=== PATIENT | male | born 1955 | race Caucasian/White ===

== ENCOUNTER 2023-08-02 22:51 | Emergency (ER) | payer MEDICARE, OTHER, SELFPAY ==
[2023-08-02] VITALS (8 sets, daily range): BP systolic 44–128; BP diastolic 23–94; PULSE 58–122; RESP 16–25; TEMP 36.7–37.1; O2SAT 89–96
--- NOTE | ~2023-08-02 | CT_ITS ---
EXAMINATION: CT CHEST WITHOUT CONTRAST CT ABDOMEN AND PELVIS WITHOUT CONTRAST CLINICAL INFORMATION: unresponsive, cardiac arrest. COMPARISON: No pertinent prior studies are available for comparison. TECHNIQUE: Multidetector volumetric imaging was performed from the thoracic inlet through the pubic symphysis without intravenous contrast material. Multiplanar reformatted images in coronal and sagittal orientations were submitted.. This CT examination was performed using dose optimization techniques as appropriate, variously including the following: *Automated exposure control *Adjustment of mA and/or kV according to patient size (this includes techniques or standardized protocols for targeted exams where dose is matched to indication/reason for exam; i.e. extremities or head) *Use of iterative reconstruction technique DOSE: 1809 mGy-cm FINDINGS: -CHEST- LUNG: Diffuse groundglass and consolidative airspace opacities are present throughout both lungs with areas of sparing more anteriorly, consistent with diffuse pulmonary edema. Interlobular septal thickening is noted in multiple locations, consistent with interstitial edema. There are small moderate-sized bilateral dependent pleural effusions. Central airways are clear. MEDIASTINUM: Calcific atherosclerosis is present in the coronary arteries. Calcification is present at the aortic valve and mitral annulus. Heart is normal in size. Moderate-sized pericardial effusion. ET tube terminates 2.5 cm from the rolando. CHEST WALL/AXILLA: No axillary adenopathy. There are fractures of the right second, third, fourth, fifth, sixth, seventh, and eighth ribs anteriorly and the left second through sixth ribs anteriorly. -ABDOMEN/PELVIS- LIVER, GALLBLADDER, BILIARY TREE: The liver is normal in size, shape, and attenuation. No focal hepatic lesion or biliary ductal dilatation is present. Cholelithiasis. No evidence of acute cholecystitis. PANCREAS: Atrophic. No ductal dilatation. SPLEEN: Normal size. No focal lesion. ADRENAL GLANDS: Normal; no mass. KIDNEYS AND URETERS: The kidneys are normal in size, shape, and attenuation. No hydronephrosis, hydroureter, or calculi seen. Mild bilateral perinephric stranding. BLADDER: Escoto catheter terminates in the bladder. There is bladder wall thickening which may be due to cystitis or reactive to the presence of a Escoto catheter. A small amount of gas is present within the bladder. GASTROINTESTINAL TRACT: NG tube terminates in the body of the stomach. Stomach, small bowel, and colon are normal in caliber. There is a moderate amount of stool throughout the colon. The colon is mild wall thickening with lack of administration. Appendix appears normal. Small bowel is unremarkable. ABDOMINAL WALL: No significant hernia is appreciated. VASCULATURE: Calcific atherosclerosis is present in the abdominal aorta and visceral arteries as well as the iliac and femoral arteries. LYMPH NODES: No lymphadenopathy. . PELVIC VISCERA: Mild prostatomegaly. OSSEUS STRUCTURES: There are above, there are multiple rib fractures. There is a transverse nondisplaced fracture through the sternum between the attachments of the second and third ribs. 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 More mild osteoarthritis in the hips and SI joints. CT/CT abdomen pelvis wo IV con IMPRESSION: 1. Diffuse pulmonary edema with small to moderate-sized bilateral pleural effusions. 2. Moderate-sized pericardial effusion. 3. Multiple bilateral anterior rib fractures as well as a nondisplaced fracture of the sternum. 4. Moderate volume of stool throughout the colon. Mild generalized colonic wall thickening may be related to the stool, though the lack of administration raise the possibility of chronic inflammation/pulmonary disease. No significant focal abnormalities to indicate a site of acute inflammation. 5. Cholelithiasis without evidence of acute cholecystitis. 6. Mild prostatomegaly. 7. Escoto catheter terminates in the bladder. Bladder wall thickening may be due to cystitis or reactive to the presence of a Escoto catheter.
--- NOTE | ~2023-08-02 | XR_ITS ---
EXAMINATION: XR CHEST CLINICAL INFORMATION: Cardiac code COMPARISON: None available. TECHNIQUE: Frontal view of the chest was obtained. FINDINGS: Endotracheal tube approximately 1.4 cm above the rolando. Right chest wall pacer pad. Enteric tube courses below left hemidiaphragm into the stomach. Diffuse patchy radiopacities throughout the bilateral lung rios may reflect infectious/inflammatory etiology, pulmonary edema, or sequela of ARDS. Bilateral low lung volumes. No pneumothorax. Trachea is midline. Cardiac mediastinal silhouette is borderline enlarged. No large pleural effusion. Osseous structures are intact. Soft tissues are unremarkable. XR/XR chest 1V IMPRESSION: 1. Endotracheal tube approximately 1.4 cm above the rolando. 2. Right chest wall pacer pad. 3. Enteric tube courses below left hemidiaphragm into the stomach. 4. Diffuse patchy radiopacities throughout the bilateral lung riso may reflect infectious/inflammatory etiology, pulmonary edema, or sequela of ARDS. 5. Bilateral low lung volumes.
--- NOTE | ~2023-08-02 | CT_ITS ---
EXAMINATION: HEAD CT WITHOUT CONTRAST CERVICAL SPINE CT WITHOUT CONTRAST CLINICAL INFORMATION: Unresponsive. COMPARISON: None. TECHNIQUE: Contiguous axial imaging of the head was performed without the administration of IV contrast. Axial multidetector volumetric images were also performed through the cervical spine without intravenous contrast. Multiplanar reconstructed images in coronal and sagittal orientations were submitted. This CT examination was performed using dose optimization techniques as appropriate, variously including the following: *Automated exposure control *Adjustment of mA and/or kV according to patient size (this includes techniques or standardized protocols for targeted exams where dose is matched to indication/reason for exam; i.e. extremities or head) *Use of iterative reconstruction technique DOSE: 1182 mGy-cm FINDINGS: HEAD: The parenchyma appears diffusely featureless with loss of moeller-white differentiation throughout the cerebrum and cerebellum. A few foci of hypoattenuation in the subcortical and periventricular white matter are most consistent with chronic microangiopathic changes. No focal parenchymal abnormalities are identified. There is no evidence of acute intracranial hemorrhage. No abnormal mass-effect or midline shift. No extra-axial fluid collections. The ventricles are normal in size and configuration. The soft tissues and osseous structures are normal. The sinuses and mastoid air cells are clear. 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 Vertebral body heights are normal. No fractures of the vertebral bodies or posterior elements. Vertebral alignment is normal. No subluxation. Degenerative osteophytes and sclerosis are present at the atlantodental articulation, though normal alignment is maintained. There is mild to moderate multilevel degenerative disc disease in the cervical spine characterized by endplate osteophytes and loss of vertebral disc height. [id number] multilevel facet arthropathy. Vertebral osteophytes produce neural foraminal encroachment at multiple levels. Posterior disc osteophyte complexes also contribute to at least mild central canal narrowing at multiple levels. No epidural hematoma identified. Interstitial edema is suspected at the lung apices. CT/CT cervical spine wo IV con IMPRESSION: 1. Diffuse loss of moeller-white differentiation in the cerebrum and cerebellum with loss of moeller-white differentiation. Findings are most concerning for diffuse anoxic brain injury. Consider confirmation with MRI if clinically warranted. No acute intracranial hemorrhage. 2. No acute fracture or malalignment in the cervical spine. 3. 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 4. Probable interstitial pulmonary edema at the lung apices.
[2023-08-02 22:59] LABS: Glucose, Whole Blood 256 mg/dL (60-115)
--- NOTE | 2023-08-02 23:16 | ECG_ITS ---
Test Reason : CARDIAC ARREST Blood Pressure : / mmHG Vent. Rate : 083 BPM Atrial Rate : 083 BPM P-R Int : 234 ms QRS Dur : 122 ms QT Int : 398 ms P-R-T Axes : 061 151 241 degrees QTc Int : 467 ms Sinus rhythm with 1st degree A-V block Right bundle branch block Left posterior fascicular block Bifascicular block Possible Inferior infarct , age undetermined Anterior infarct , age undetermined T wave abnormality, consider lateral ischemia Abnormal ECG No previous ECGs available Referred By: Elisa Hadley Electronically Signed By:FARHAT DE LA CRUZ MD
[2023-08-02] MEDS: Digoxin 0.5 MG/2 ML AMPUL 0.125 MG IVPUSH (23:32)
[2023-08-02] MEDS: DOBUTamine HCL/D5W 500 MG/250 ML IV.SOLN 16.35 MG IVCONT (23:52)
[2023-08-03] VITALS (17 sets, daily range): BP systolic 75–122; BP diastolic 42–65; PULSE 56–126; RESP 13–14; TEMP 34.4–36.7; O2SAT 63–100; BMI 34.5
[2023-08-03 00:05] LABS: Basophils Percent Auto 0.1 % (0-2); Eosinophils Absolute Auto 0.1 X10*3/uL (0.0-0.4); Eosinophils Percent Auto 1.2 % (0-4); Hematocrit 25.7 % (42.0-52.0); Hemoglobin 7.9 g/dl (14.0-18.0); Imm Gran Abs Auto 0.15 X10*3/uL (0.00-0.03); Lymphocytes Absolute Auto 0.9 X10*3/uL (1.2-4.9); Lymphocytes Percent Auto 11.8 % (20-40); MANUAL DIFF FLAG NO; Mean Corpuscular HGB Conc 30.7 g/dl (31.0-36.0); Mean Corpuscular Hemoglobin 25.6 pg (27.0-33.0); Mean Corpuscular Volume 83.2 fL (80.0-98.0); Mean Platelet Volume 10.5 fL (9.4-12.4); Monocytes Absolute Auto 0.2 X10*3/uL (0.1-1.2); Monocytes Percent Auto 2.9 % (2-11); Neutrophils Absolute Auto 6.2 x10*3/uL (2.0-8.3); Platelet Count 247 X10*3/uL (160-400); Red Blood Count 3.09 X10*6/uL (4.60-5.80); Red Cell Distribution Width 15.9 % (11.0-16.0); White Blood Count 7.6 X10*3/uL (4.8-10.8)
[2023-08-03 00:10] LABS: Venous Blood Gas Refer to POC result
[2023-08-03 00:11] LABS: VBG Base Excess -4.9 mmol/L; VBG HCO3 21 mmol/L (22-26); VBG pCO2 45 mmHg; VBG pH 7.27 (7.32-7.43); VBG pO2 72 mmHg
[2023-08-03 00:20] LABS: Appearance Urine Clear; Color Urine Yellow; Glucose Urine UA 500 mg/dL (Negative); Leukocyte Esterase Urine Negative (Negative); Nitrite Urine Negative (Negative); Specific Gravity - Urine 1.015 (1.005-1.025); UMIC TRIGGER UACC YES; Urine Blood Small (1+) (Negative); Urine Ketones Negative (Negative); Urine Protein 100 (2+) mg/dL (Neg-Trace)
--- NOTE | 2023-08-03 00:20 | PC.NURSE ---
Assumed care for pt. Pt unresponsive, on the ventilator, intubated 7.5 ET 23 @ lip 160G, respiratory at bedside bagging pt. NGT in place, scant brown substance in collection bag. Dobutamine running at 20 mcg. Verbal order received from Dr. Crum to increase it to 30mcg as BP continues to decrease. @ 0037 Dobutamine increased to 35mcg per Dr. Crum who is at bedside. @ 0043 Doutamine increased to 40mcg per Dr. Crum, BP 84/45 @ 0048 BP continues to be low. Dopamine started at 5mcg per Dr Crum. BP 86/45 MAP 56 @ 0053 Dopamine increased to 10mcg. BP 83/45 MAP 56 HR 126
[2023-08-03 00:21] LABS: INTERNATIONAL NORM RATIO 1.5 (0.9-1.1); Prothrombin Time 17.8 SEC (11.1-13.3)
[2023-08-03 00:23] LABS: Bacteria Urine None Seen (None Seen); Hyaline Casts Urine 0-2 /LPF (0-2); Squamous Epithelial Cell Urine 0-2 /HPF (0-2); WBC Urine 0-5 /HPF (0-5)
[2023-08-03 00:24] LABS: Alanine Aminotransferase 65 U/L (0-40); Albumin Level 2.1 g/dL (3.5-5.0); Alkaline Phosphatase 62 U/L (39-117); Anion Gap 19 (12-20); Aspartate Amino Transferase 63 U/L (5-37); Bilirubin Direct 0.3 mg/dL (0.0-0.5); Bilirubin Total 0.5 mg/dL (0.0-1.0); Blood Urea Nitrogen 33 mg/dL (9-16); Calcium 7.2 mg/dL (8.4-10.2); Carbon Dioxide 19 mmol/L (22-29); Chloride 108 mmol/L (96-108); Creatinine Clr Calc Pharmacy 45.6; Estimated Glomerular Filt Rate 36; Ethanol < 10 mg/dL; Glucose Random 313 mg/dL (60-115); Lipase 18 U/L (8-78); Magnesium 1.5 mg/dL (1.6-2.6); Partial Thromboplastin Time 33.8 SEC (26.0-36.4); Potassium 5.3 mmol/L (3.3-5.1); Sodium 141 mmol/L (135-145); Total Protein 5.5 g/dL (6.5-8.0)
[2023-08-03 00:25] LABS: Troponin-I High Sensitivity 23.8 ng/L (<3.5-35.0)
[2023-08-03] MEDS: DOPamine HCL/D5W 400 MG/250 ML PLAST..BAG 20.44 MG IVCONT (00:50)
--- NOTE | 2023-08-03 00:51 | ED.CPR ---
HPI - CPR General Chief Complaint: Cardiac Arrest/CPR Stated Complaint: cardiac arrest Time Seen by Provider: 08/03/23 00:11 Source: EMS Mode of arrival: EMS Limitations: other History of Present Illness HPI narrative: Patient comes to the emergency room via ambulance in cardiac arrest and CPR in progress. According to EMS, a bystander found the patient unresponsive outside of his car. Unknown down time. According to bystanders, the patient was seen with a prostitute in his car, patient exited his car and collapsed. PD arrived at the scene and CPR was started, then EMS arrived, an I- gel was inserted for ventilation, SHIRA was applied to the chest for continues compressions, patient was given 5 epinephrine. Prior to arrival and 1 dose of intranasal Narcan. When patient arrived to the emergency room, patient was still in asystole, patient was intubated immediately Related Data Allergies Allergy/AdvReac Type Severity Reaction Status Date / Time Unable to Assess Allergy Unverified 08/02/23 23:16 Review of Systems Review of Systems: Yes Unobtainable due to mental condition PMFSH Past Medical History Onset Date is defined in the Problem List Problems that require an onset date and time if occurred within 24 hrs of arrival to the ED Aortic Dissection and Rupture; Neurologic impairment; Cardiopulmonary Arrest; Endotracheal Intubation; Insertion or Replacement of Mechanical Circulatory Assist Device Medical History (Updated 08/03/23 @ 03:03 by Yumiko Crum MD) Atrial fibrillation with RVR CHF (congestive heart failure) Type 2 diabetes mellitus Social History Social History Advance Directives: No Advance Directives Information Provided: No Physical Exam Vital Signs: Vital Signs: Last Vital Signs Temp 93.9 F L 08/03/23 02:00 Pulse 56 08/03/23 03:01 Resp 14 08/03/23 02:00 BP 112/56 L 08/03/23 03:01 Pulse Ox 94 08/03/23 02:00 O2 Del Method Mechanical Ventil ation 08/03/23 02:00 O2 Flow Rate 14 08/03/23 02:00 FiO2 100 08/03/23 00:11 BMI result Body Mass Index 34.5 Const: Other: Appearance: Unresponsive Eyes: Dilated, unresponsive ENT: I gel dislodged, theres a small amount of vomit in the airway Neck: Normal inspection. Neck supple. No lymph nodes noted. No crepitus CVS: CPR in progress Respiratory: Being manually ventilated Abdomen: Soft and nontender. No rigidity. No distention. Skin: Skin cold Extremities: +2 pitting edema in lower extremities Neuro: Unresponsive Psych: Unresponsive Course Course Course Narrative: -there are no obvious signs of physical injury -when patient arrived to the ED, after 8 minutes of CPR, patient regained ROSC -patient's blood pressure in the 110s systolic, heart rate in the 160s, EKG shows AFib with RVR. -patient was given 1 dose of digoxin IV push. -patient remains stable for approximately 10 minutes. Then, patient's blood pressure and heart rate both dropped to the 40s and lower and then patient went to PEA -overall, patient went into cardiac arrest a total of 3 times in the ED, obtained ROSC 4 times -patient has had pulse is for approximately 40 minutes. -patient is on pressors to help sustain the blood pressure. -urine toxicology negative, alcohol level negative -I discussed the patient with our house painting instructor Dr. Menjivar -pending CT scans of head neck chest abdomen and pelvis, patient will be admitted to the ICU. -I called patient's sister who is the patient's healthcare proxy. -seems that patient wanted to be a DNR DNI. However, when patient arrived, we did not have any information or prior records. -discussed with the family that the prognosis is very poor. -also, our house painting instructor ALEXYS spoke with the family, family agreeable to keep the patient intubated for the next 24 hours and see how he does. In the meantime, the family would have time to call the patient's sons and likely make him BRICKMASON CONTRACTOR if he does not improve. Of note, patient's lactic acid is elevated because the patient was hypoxic for an unknown but prolonged period of time and patient had several rounds of CPR. Sepsis is not suspected. Patient will be given antibiotics prophylactically since he probably aspirated -at this time, sepsis is not suspected, this was likely a sudden cardiac event versus overdose? -according to the charge nurse, police Department was here earlier today while we were working with the patient. Police Department request that if the patient dies, to contact PD, since the circumstances of the patient's cardiac arrest is suspicious for foul play -CT scan of the head shows diffuse loss of moeller water deficiency collins in the cerebrum and cerebellum with loss of moeller water deficiency a collins. Findings are most concerning for diffuse anoxic brain injury. -ALEXYS Chambers from the ICU and myself spoke to the family who is at bedside regarding of this findings and the poor prognosis. The family decided that the patient never wanted to be intubated for prolonged period of time. They have all agreed that he would be best to make the patient comfort measures only. -went ahead and extubated the patient., patient's heart rate rapidly decreasing -time of called at 03:01 -patient's family at bedside -medical billing supervisor except the patient, case # [id number], I spoke to Susie Peterson -[employer] accepted the patient Medications Administered Generic Name Dose Route Start Last Admin Trade Name Freq PRN Reason Stop Dose Admin Dobutamine HCl/Dextrose 500 mg in 250 mls @ 0 mls/hr 08/02/23 23:45 08/03/23 01:14 Dobutrex IVCONT 0 mcg/kg/min .Q0M OMER 0 mls/hr Titration Protocol Per Protocol Norepinephrine Bitartrate 8 mg in 250 mls @ 0 mls/hr 08/03/23 01:15 08/03/23 01:14 Levophed IV 0.5 mcg/kg/min .Q0M OMER 102.19 mls/hr Administration Protocol Per Protocol Albumin Human 100 mls @ 100 mls/hr 08/03/23 02:15 08/03/23 03:01 Kedbumin 25 % IV 08/03/23 06:14 0 mls/hr Q1H OMER Infusion Discontinued Medications Generic Name Dose Route Start Last Admin Trade Name Freq PRN Reason Stop Dose Admin Digoxin 0.125 mg 08/02/23 23:30 08/02/23 23:32 Digoxin 0.5 Mg/2 Ml Ampul IVPUSH 08/02/23 23:31 0.125 mg ONCE ONE Administration Diltiazem HCl 10 mg 08/03/23 01:36 08/03/23 01:37 Diltiazem Hcl 50 Mg/10 Ml Vial IVPUSH 08/03/23 01:37 10 mg STAT STA Administration Dopamine HCl/Dextrose 400 mg in 250 mls @ 0 mls/hr 08/03/23 00:45 08/03/23 03:01 Dopamine Hcl/D5w IVCONT 0 mcg/kg/min .Q0M OMER 0 mls/hr Titration Protocol Per Protocol Piperacillin Sod/Tazobactam 50 mls @ 100 mls/hr 08/03/23 01:18 08/03/23 02:07 Sod 3.375 gm/ Sodium Chloride IV 08/03/23 01:47 100 mls/hr ONCE ONE Administration Sodium Chloride 1,000 mls @ 999 mls/hr 08/03/23 01:30 08/03/23 03:01 Ns IV 08/03/23 02:30 Infused .Q1H1M OMER Infusion Medical Decision Making Differential Diagnosis Differential Diagnoses: The differential diagnosis associated with the presentation includes (Myocardial infarction, overdose, cardiac arrest) Admission/Observation Consideration of admission/observation: Escalation of care including admission/observation considered (Patient was initially admitted to the intensive care unit. However, patient was made BRICKMASON CONTRACTOR in the ED) Consult Healthcare Provider Management of the patient was discussed with: Auto Headlight Mechanic Lab Data MDM Lab Attestation statement: I reviewed the patient's lab results. 08/02/23 23:59 08/02/23 23:59 Labs: Lab Results 08/02/23 08/02/23 08/03/23 Range/Units 22:54 23:59 00:04 WBC 7.6 (4.8-10.8) X10*3/uL RBC 3.09 L (4.60-5.80) X10*6/uL Hgb 7.9 L (14.0-18.0) g/dl Hct 25.7 L (42.0-52.0) % MCV 83.2 (80.0-98.0) fL MCH 25.6 L (27.0-33.0) pg MCHC 30.7 L (31.0-36.0) g/dl RDW 15.9 (11.0-16.0) % Plt Count 247 (160-400) X10*3/uL MPV 10.5 (9.4-12.4) fL Immature Gran % (Auto) 2.0 H (0.0-0.4) % Neut % (Auto) 82.0 H (45-73) % Lymph % (Auto) 11.8 L (20-40) % Swisher % (Auto) 2.9 (2-11) % Eos % (Auto) 1.2 (0-4) % Baso % (Auto) 0.1 (0-2) % Lymph # (Auto) 0.9 L (1.2-4.9) X10*3/uL Swisher # (Auto) 0.2 (0.1-1.2) X10*3/uL Eos # (Auto) 0.1 (0.0-0.4) X10*3/uL Baso # (Auto) 0.0 (0.0-0.2) X10*3/uL Abs Immat Gran (auto) 0.15 H (0.00-0.03) X10*3/uL Absolute Neuts (auto) 6.2 (2.0-8.3) x10*3/uL Absolute Nucleated RBC 0.000 (0.0-0.012) X10*3/uL Nucleated RBC % (auto) 0.0 (0.0-0.2) /100WBC PT 17.8 H (11.1-13.3) SEC INR 1.5 H (0.9-1.1) APTT 33.8 (26.0-36.4) SEC VBG pH 7.27 L (7.32-7.43) VBG pCO2 45 mmHg VBG pO2 72 mmHg VBG HCO3 21 L (22-26) mmol/L VBG O2 Saturation 91.0 % VBG Base Excess -4.9 mmol/L Sodium 141 (135-145) mmol/L Potassium 5.3 H (3.3-5.1) mmol/L Chloride 108 (96-108) mmol/L Carbon Dioxide 19 L (22-29) mmol/L Anion Gap 19 (12-20) BUN 33 H (9-16) mg/dL Creatinine 1.89 H (0.5-1.4) mg/dL Estim Creat Clear Calc 45.6 Estimated GFR 36 POC Glucose 256 H (60-115) mg/dL Random Glucose 313 H (60-115) mg/dL Lactic Acid 8.0 H* (0.5-2.0) mmol/L Calcium 7.2 L (8.4-10.2) mg/dL Magnesium 1.5 L (1.6-2.6) mg/dL Total Bilirubin 0.5 (0.0-1.0) mg/dL Direct Bilirubin 0.3 (0.0-0.5) mg/dL AST 63 H (5-37) U/L ALT 65 H (0-40) U/L Alkaline Phosphatase 62 (39-117) U/L Total Creatine Kinase 166 (38-174) U/L Troponin I High Sens 23.8 (<3.5-35.0) ng/L B-Natriuretic Peptide 481 H (<100) pg/mL Total Protein 5.5 L (6.5-8.0) g/dL Albumin 2.1 L (3.5-5.0) g/dL Lipase 18 (8-78) U/L Urine Color Urine Appearance Urine pH (5.0-9.0) Ur Specific [place] (1.005-1.025) Urine Protein (Neg-Trace) mg/dL Urine Glucose (UA) (Negative) mg/dL Urine Ketones (Negative) mg/dL Urine Blood (Negative) Urine Nitrite (Negative) Ur Leukocyte Esterase (Negative) Urine RBC (0-2) /HPF Urine WBC (0-5) /HPF Ur Squamous Epith Cells (0-2) /HPF Urine Bacteria (None Seen) Hyaline Casts (0-2) /LPF Urine Opiates Screen (Not Detect) Urine Fentanyl Screen (Not Detect) Ur Barbiturates Screen (Not Detect) Ur Phencyclidine Scrn (Not Detect) Ur Amphetamines Screen (Not Detect) U Benzodiazepines Scrn (Not Detect) Urine Cocaine Screen (Not Detect) U Marijuana (THC) Screen (Not Detect) Ethyl Alcohol < 10 mg/dL 08/03/23 Range/Units 00:08 WBC (4.8-10.8) X10*3/uL RBC (4.60-5.80) X10*6/uL Hgb (14.0-18.0) g/dl Hct (42.0-52.0) % MCV (80.0-98.0) fL MCH (27.0-33.0) pg MCHC (31.0-36.0) g/dl RDW (11.0-16.0) % Plt Count (160-400) X10*3/uL MPV (9.4-12.4) fL Immature Gran % (Auto) (0.0-0.4) % Neut % (Auto) (45-73) % Lymph % (Auto) (20-40) % Swisher % (Auto) (2-11) % Eos % (Auto) (0-4) % Baso % (Auto) (0-2) % Lymph # (Auto) (1.2-4.9) X10*3/uL Swisher # (Auto) (0.1-1.2) X10*3/uL Eos # (Auto) (0.0-0.4) X10*3/uL Baso # (Auto) (0.0-0.2) X10*3/uL Abs Immat Gran (auto) (0.00-0.03) X10*3/uL Absolute Neuts (auto) (2.0-8.3) x10*3/uL Absolute Nucleated RBC (0.0-0.012) X10*3/uL Nucleated RBC % (auto) (0.0-0.2) /100WBC PT (11.1-13.3) SEC INR (0.9-1.1) APTT (26.0-36.4) SEC VBG pH (7.32-7.43) VBG pCO2 mmHg VBG pO2 mmHg VBG HCO3 (22-26) mmol/L VBG O2 Saturation % VBG Base Excess mmol/L Sodium (135-145) mmol/L Potassium (3.3-5.1) mmol/L Chloride (96-108) mmol/L Carbon Dioxide (22-29) mmol/L Anion Gap (12-20) BUN (9-16) mg/dL Creatinine (0.5-1.4) mg/dL Estim Creat Clear Calc Estimated GFR POC Glucose (60-115) mg/dL Random Glucose (60-115) mg/dL Lactic Acid (0.5-2.0) mmol/L Calcium (8.4-10.2) mg/dL Magnesium (1.6-2.6) mg/dL Total Bilirubin (0.0-1.0) mg/dL Direct Bilirubin (0.0-0.5) mg/dL AST (5-37) U/L ALT (0-40) U/L Alkaline Phosphatase (39-117) U/L Total Creatine Kinase (38-174) U/L Troponin I High Sens (<3.5-35.0) ng/L B-Natriuretic Peptide (<100) pg/mL Total Protein (6.5-8.0) g/dL Albumin (3.5-5.0) g/dL Lipase (8-78) U/L Urine Color Yellow Urine Appearance Clear Urine pH 6.0 (5.0-9.0) Ur Specific [place] 1.015 (1.005-1.025) Urine Protein 100 (2+) H (Neg-Trace) mg/dL Urine Glucose (UA) 500 H (Negative) mg/dL Urine Ketones Negative (Negative) mg/dL Urine Blood Small (1+) H (Negative) Urine Nitrite Negative (Negative) Ur Leukocyte Esterase Negative (Negative) Urine RBC 6-10 H (0-2) /HPF Urine WBC 0-5 (0-5) /HPF Ur Squamous Epith Cells 0-2 (0-2) /HPF Urine Bacteria None Seen (None Seen) Hyaline Casts 0-2 (0-2) /LPF Urine Opiates Screen Not Detected (Not Detect) Urine Fentanyl Screen Not Detected (Not Detect) Ur Barbiturates Screen Not Detected (Not Detect) Ur Phencyclidine Scrn Not Detected (Not Detect) Ur Amphetamines Screen Not Detected (Not Detect) U Benzodiazepines Scrn Not Detected (Not Detect) Urine Cocaine Screen Not Detected (Not Detect) U Marijuana (THC) Screen Not Detected (Not Detect) Ethyl Alcohol mg/dL Independent Interpretation I performed an independent interpretation of an: EKG and CT Scan Radiology Impression Discussion of test interpretation with radiology: I have reviewed the radiologist's reading. Radiologist Impression: HEAD: The parenchyma appears diffusely featureless with loss of moeller-white differentiation throughout the cerebrum and cerebellum. A few foci of hypoattenuation in the subcortical and periventricular white matter are most consistent with chronic microangiopathic changes. No focal parenchymal abnormalities are identified. There is no evidence of acute intracranial hemorrhage. No abnormal mass-effect or midline shift. No extra-axial fluid collections. The ventricles are normal in size and configuration. The soft tissues and osseous structures are normal. The sinuses and mastoid air cells are clear. 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 Vertebral body heights are normal. No fractures of the vertebral bodies or posterior elements. Vertebral alignment is normal. No subluxation. Degenerative osteophytes and sclerosis are present at the atlantodental articulation, though normal alignment is maintained. There is mild to moderate multilevel degenerative disc disease in the cervical spine characterized by endplate osteophytes and loss of vertebral disc height. Brve-re-bohjyfzd multilevel facet arthropathy. Vertebral osteophytes produce neural foraminal encroachment at multiple levels. Posterior disc osteophyte complexes also contribute to at least mild central canal narrowing at multiple levels. No epidural hematoma identified. Interstitial edema is suspected at the lung apices. CT/CT head/brain wo IV con IMPRESSION: 1. Diffuse loss of moeller-white differentiation in the cerebrum and cerebellum with loss of moeller-white differentiation. Findings are most concerning for diffuse anoxic brain injury. Consider confirmation with MRI if clinically warranted. No acute intracranial hemorrhage. 2. No acute fracture or malalignment in the cervical spine. 3. 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 4. Probable interstitial pulmonary edema at the lung apices. [place] [id number] CT Scan Report Signed Patient: Juan Tripathi MR#: [id number] : 1955 Acct:[id number] Age/Sex: 68 / M ADM Date: 08/03/23 Loc: HO.ED Attending Dr: Ordering Physician: Yumiko Crum MD Date of Service: 08/03/23 Procedure(s): CT chest wo IV con Accession Number(s): [id number] cc: Sree Chacon MD; Yumiko Crum MD~ EXAMINATION: CT CHEST WITHOUT CONTRAST CT ABDOMEN AND PELVIS WITHOUT CONTRAST CLINICAL INFORMATION: unresponsive, cardiac arrest. COMPARISON: No pertinent prior studies are available for comparison. TECHNIQUE: Multidetector volumetric imaging was performed from the thoracic inlet through the pubic symphysis without intravenous contrast material. Multiplanar reformatted images in coronal and sagittal orientations were submitted.. This CT examination was performed using dose optimization techniques as appropriate, variously including the following: *Automated exposure control *Adjustment of mA and/or kV according to patient size (this includes techniques or standardized protocols for targeted exams where dose is matched to indication/reason for exam; i.e. extremities or head) *Use of iterative reconstruction technique DOSE: 1809 mGy-cm FINDINGS: -CHEST- LUNG: Diffuse groundglass and consolidative airspace opacities are present throughout both lungs with areas of sparing more anteriorly, consistent with diffuse pulmonary edema. Interlobular septal thickening is noted in multiple locations, consistent with interstitial edema. There are small moderate-sized bilateral dependent pleural effusions. Central airways are clear. MEDIASTINUM: Calcific atherosclerosis is present in the coronary arteries. Calcification is present at the aortic valve and mitral annulus. Heart is normal in size. Moderate-sized pericardial effusion. ET tube terminates 2.5 cm from the rolando. CHEST WALL/AXILLA: No axillary adenopathy. There are fractures of the right second, third, fourth, fifth, sixth, seventh, and eighth ribs anteriorly and the left second through sixth ribs anteriorly. -ABDOMEN/PELVIS- LIVER, GALLBLADDER, BILIARY TREE: The liver is normal in size, shape, and attenuation. No focal hepatic lesion or biliary ductal dilatation is present. Cholelithiasis. No evidence of acute cholecystitis. PANCREAS: Atrophic. No ductal dilatation. SPLEEN: Normal size. No focal lesion. ADRENAL GLANDS: Normal; no mass. KIDNEYS AND URETERS: The kidneys are normal in size, shape, and attenuation. No hydronephrosis, hydroureter, or calculi seen. Mild bilateral perinephric stranding. BLADDER: Escoto catheter terminates in the bladder. There is bladder wall thickening which may be due to cystitis or reactive to the presence of a Escoto catheter. A small amount of gas is present within the bladder. GASTROINTESTINAL TRACT: NG tube terminates in the body of the stomach. Stomach, small bowel, and colon are normal in caliber. There is a moderate amount of stool throughout the colon. The colon is mild wall thickening with lack of administration. Appendix appears normal. Small bowel is unremarkable. ABDOMINAL WALL: No significant hernia is appreciated. VASCULATURE: Calcific atherosclerosis is present in the abdominal aorta and visceral arteries as well as the iliac and femoral arteries. LYMPH NODES: No lymphadenopathy. . PELVIC VISCERA: Mild prostatomegaly. OSSEUS STRUCTURES: There are above, there are multiple rib fractures. There is a transverse nondisplaced fracture through the sternum between the attachments of the second and third ribs. 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 More mild osteoarthritis in the hips and SI joints. CT/CT chest wo IV con IMPRESSION: 1. Diffuse pulmonary edema with small to moderate-sized bilateral pleural effusions. 2. Moderate-sized pericardial effusion. 3. Multiple bilateral anterior rib fractures as well as a nondisplaced fracture of the sternum. 4. Moderate volume of stool throughout the colon. Mild generalized colonic wall thickening may be related to the stool, though the lack of administration raise the possibility of chronic inflammation/pulmonary disease. No significant focal abnormalities to indicate a site of acute inflammation. 5. Cholelithiasis without evidence of acute cholecystitis. 6. Mild prostatomegaly. 7. Escoto catheter terminates in the bladder. Bladder wall thickening may be due to cystitis or reactive to the presence of a Escoto catheter. Critical Care Time Critical Care Time Critical Care Time: Yes Total Critical Care Time: 120 Attestation: I have personally provided critical care time. Time includes review of lab data, radiology results, discussion with consultants, and monitoring for potential decompensation. Intervention performed as documented. Discharge Plan Discharge Clinical Impression: Cardiac arrest, Acute kidney injury, CHF (congestive heart failure), Atrial fibrillation with RVR Patient Disposition: Date/Time: 08/03/23 03:01
--- NOTE | 2023-08-03 01:01 | PC.NURSE ---
Pt currently on Dopamine 10mcg and Dobumatine 40mcg. BP 94/46 MAP 61 HR [address]. Verbal from Dr. Crum stop both Dopamine and Dobutamine. Starting Levophed. Dr. Crum will place order in MAR
[2023-08-03 01:05] LABS: B Type Natriuretic Peptide 481 pg/mL (<100)
[2023-08-03] MEDS: Norepinephrine Bitartrate/D5W 8 MG/250 ML PLAST..BAG 102.19 MG IV (01:14)
--- NOTE | 2023-08-03 01:24 | PC.NURSE ---
Levophed started at 0.5mcg per verbal order of Christian. Dopamine and Dobutamine stopped at this time. Christian's verbal orders 1. MAP goal of 70 2. Give 2 L NS. Pt already received one liter NS. 3. 4 bags of albumin 4. Give Cardizem 10mg IV push once BP is >140
--- NOTE | 2023-08-03 01:26 | PC.NURSE ---
Family at bedside. MLP and MD at bedside updating family.
[2023-08-03] MEDS: 0.9 % Sodium Chloride 1,000 ML 999 ML IV (01:32)
[2023-08-03] MEDS: dilTIAZem HCL 50 MG/10 ML VIAL 10 MG IVPUSH (01:37)
[2023-08-03 01:46] LABS: Amphetamine Screen Urine Not Detected (Not Detect); Barbiturates, Urine Not Detected (Not Detect); Benzodiazepines Screen Urine Not Detected (Not Detect); Cannabinoid Screen Urine Not Detected (Not Detect); Cocaine Screen Urine Not Detected (Not Detect); Fentanyl, urine Not Detected (Not Detect); Opiate Screen Urine Not Detected (Not Detect); Phencyclidine Screen Urine Not Detected (Not Detect)
[2023-08-03 02:04] LABS: Reflex Lactate? Lactic Acid Added
--- NOTE | 2023-08-03 02:05 | PC.NURSE ---
Pt to ct scan. Scans done. Pt at bedside Levo running at 0.5mcg. BP 98/50 MAP 64 HR 83 Respiratory at bedside. O2 sat 94%
[2023-08-03] MEDS: Piperacillin Sodium/Tazobactam 3.375 GM in 0.9 % Sodium Chloride 50 ML IV (02:07)
[2023-08-03] MEDS: Albumin Human 25 % 100 ML IV (02:28)
--- NOTE | 2023-08-03 02:57 | PM.CCN ---
Critical Care Event Note Summary Date of Service: 08/03/23 Code activated: No Narrative: This case had a high probability of a clinically significant, sudden, or life threatening deterioration of this patient's condition which required my full and direct attention, intervention and personal management. Critical Care Time (minutes): 60 Comment: Patient was seen in the emergency room as we were called for a possible admission to the ICU.? Case was reviewed in detail with the ER provider; chart was reviewed, labs interpreted and debriefing of the patient's code blue times 4 with an approximate total time of 1 hour before obtaining ROSC in a stable manner. Reportedly this 68-year-old male with history of obesity, atrial fibrillation with rapid ventricular response, type 2 diabetes, CHF otherwise unknown history.? Arrived to the emergency room around midnight after the patient was witnessed to initially being in the car with a prostitute, subsequently he had come out of the car and collapsed. It is unknown the total amount of time the patient was done before CPR was started, police Department started CPR and it was followed by EMS personnel, and I gel had been inserted for ventilation and CPR was provided with a Mikel, ongoing compressions were given for approximately 30 minutes, upon arrival to the emergency room, 8 more minutes of ACLS protocol was done before obtaining initial Rosc; but subsequently the patient had PA events a total of 3 more times before being able to have a steady, rapid pulse for approximately 40 minutes until the time we were called. After reviewing the case, we noticed the patient still does not have a generalized trauma survey which should include head, neck, chest, abdomen and pelvis CT to rule out the possibility of intracranial hemorrhage, mass, cervical neck fractures, thoracic abnormalities including tamponade, pericardial effusion, masses, new more hemothorax, surgical abdomen among others. Utox negative. In the meantime, I had a lengthy discussion with the patient's family members at bedside including the patient's sister who is the healthcare proxy Ayesha Devries; clinical scenario was discussed in detail with her as well as other patient's nephew is at bedside.? They explained to me that they would like the patient's son and daughter to arrive before making any final decisions even though the patient had never wanted to be resuscitated or intubated, but since this was already done they would at least want the family members to be present for further decision making. In the meantime and while the patient remains hypotensive, tachycardic, I suggested starting him on Levophed, given him additional IV fluids even though he may need to be diuresed later on, starting albumin, bicarb, obtaining a blood gas and empiric antibiotics while images are being done. Overall the patient has poor prognosis for he does not appear to be responsive whatsoever even though he is not on any sedation agents, he is not responding to any type of stimuli, pupils are 6 mm and dilated, fixed bilaterally, eyes are glossy and his skin is somewhat mottled. ?All of this was discussed with the patient's family and I gave them my clinical impression about what my happen in the future even though he may have active vital signs it is unlikely that he would have good quality of life or brain function. CT was reviewed by me, there appears to be massive signs of edema without differentiation of the white and moeller matter, consistent with anoxic brain injury this was confirmed by the [facility] who will place a formal reading. All of the above information was discussed in detail with the patient's family's and the ER physician.? The patient's children at now at bedside and a 2nd discussion took place, they all agreed that the best thing for the patient would be to be made comfortable and they agreed to a terminal extubation. The above was related back to the ER physician and the patient will not be admitted to the ICU. Total amount of critical care time spent with this patient at bedside and with family members 60 minutes. Case discussed with Dr Menjivar
--- NOTE | 2023-08-03 03:02 | PC.NURSE ---
Christian and Dr. Crum at bedside with family. Pt placed on FISH BIN TENDER. All drips stopped. Pt excubated with no complications. Time of 0301as per Dr. Crum.
--- NOTE | 2023-08-03 03:11 | MHC.EDTECH ---
Call out to [place] @[phone] gave demographics to Susie before passing call to
--- NOTE | 2023-08-03 03:16 | PC.NURSE ---
[facility] @ 0827 called and they will accept the case. Ref # [id number]
--- NOTE | 2023-08-03 03:19 | MHC.EDTECH ---
[facility] ACCEPTED
--- NOTE | 2023-08-03 06:26 | PC.NURSE ---
Pt transferred to the [facility] with master motorcycle technician and security.
== END 2023-08-03 06:28 | disposition expired ==
PROVIDERS: Physician Assistant Medical; Emergency Provider Emergency Medicine; PCP Family Medicine
DX: I46.9 Cardiac arrest, cause unspecified (principal); N17.9 Acute kidney failure, unspecified; I50.9 Heart failure, unspecified; I48.20 Chronic atrial fibrillation, unspecified; E11.9 Type 2 diabetes mellitus without complications; R60.0 Localized edema
CPT/HCPCS: 36415; 70450; 71045; 71250; 72125; 74176; 80048; 80076; 80307; 81001; 82550; 82803; 82947; 83605; 83690; 83735; 83880; 84484; 85025; 85610; 85730; 87040; 87205; 93005; 94002; 96361; 96365; 96366; 96367; 96375; 99284; 99285; J0171; J0461; J1160; J1250; J1265; J2543; P9047

== ENCOUNTER → 2023-08-02 23:16 | Outpatient (BNV) | payer MEDICARE, SELFPAY | PROVIDERS: Emergency Provider Emergency Medicine; PCP Family Medicine; Visit Provider Internal Medicine Cardiovascular Disease | DX: I45.2 Bifascicular block (principal); R94.31 Abnormal electrocardiogram [ECG] [EKG] | CPT/HCPCS: 93010 ==

== ENCOUNTER → 2023-08-03 00:28 | Outpatient (BNV) | payer MEDICARE, SELFPAY | PROVIDERS: Emergency Provider Emergency Medicine; PCP Family Medicine; Visit Provider Physician Assistant Medical | DX: I46.9 Cardiac arrest, cause unspecified (principal) | CPT/HCPCS: 99291 ==